=== PATIENT | male | born 1955 | race Caucasian/White ===

== ENCOUNTER 2020-08-26 14:12 | Emergency (ER) | payer MEDICAID ==
--- NOTE | 2020-08-26 15:23 | EDM.PDOC ---
ED HPI GENERAL MEDICAL PROBLEM - General Chief Complaint: Lower Extremity Injury/Pain Stated Complaint: BOTH FEET ARE SWOLLEN Time Seen by Provider: 08/26/20 15:00 Source of Information: Reports: Patient. Denies: Old Records History Limitations: Reports: No Limitations - History of Present Illness INITIAL COMMENTS - FREE TEXT/NARRATIVE: 65 yo male presents with recent onset of bilateral foot and ankle swelling. He has no other sx's. His provider recently increased his amlodipine from 5 mg daily to 5 mg bid. He has no pain or SOB. He called nurse direct and was told to go to the ER. Onset: Gradual Onset Date: 08/25/20 Duration: Day(s): (1), Constant Location: Reports: Lower Extremity, Left, Lower Extremity, Right Quality: Reports: Other (no pain) Severity: Mild Improves with: Reports: None Worsens with: Reports: Other (unsure) Context: Reports: Other (See HPI) Associated Symptoms: Reports: No Other Symptoms Treatments HALF SECTION IRONER: Reports: Other (see below) (none) Review of Systems - Review of Systems Review Of Systems: See Below Constitutional: Reports: No Symptoms Respiratory: Denies: Shortness of Breath, Pleuritic Chest Pain Musculoskeletal: Reports: No Symptoms Skin: Reports: No Symptoms Neurological: Reports: No Symptoms ED EXAM, GENERAL - Physical Exam Exam: See Below Exam Limited By: No Limitations General Appearance: Alert, WD/WN, No Apparent Distress Respiratory/Chest: No Respiratory Distress, Lungs Clear, Normal Breath Sounds, No Accessory Muscle Use. No: Crackles Cardiovascular: Regular Rate, Rhythm. No: No Edema Extremities: Pedal Edema (non pitting puffiness of both feet and ankles only). No: No Pedal Edema, Increased Warmth, Redness Neurological: Alert, Oriented, CN II-XII Intact, Normal Cognition, No Motor/Sensory Deficits Skin Exam: Warm, Dry, Intact, Normal Color, No Rash Course - Vital Signs Last Recorded V/S: Last Vital Signs Temp 37.9 C 08/26/20 15:03 Pulse 86 08/26/20 15:03 Resp 16 08/26/20 15:03 BP 115/75 08/26/20 15:03 Pulse Ox 97 08/26/20 15:03 Departure - Departure Time of Disposition: 15:20 Disposition: Home, Self-Care 01 Condition: Good Clinical Impression: Medication side effect - Discharge Information *PRESCRIPTION DRUG MONITORING PROGRAM REVIEWED*: Not Applicable *COPY OF PRESCRIPTION DRUG MONITORING REPORT IN PATIENT HELDER: Not Applicable Referrals: PCP,None [Primary Care Provider] - Additional Instructions: In the short run elevate your legs and avoid salt. Consider support stockings. In the long run, when you get home discuss backing off on your amlodipine to reduce your feet swelling. Sepsis Event Note (ED) - Focused Exam Vital Signs: Vital Signs Temp Pulse Resp BP Pulse Ox 08/26/20 15:03 37.9 C 86 16 115/75 97
== END 2020-08-26 15:31 | disposition home or self-care (01) ==
LOC: JP.ED 14:12
DX: M79.89 Other specified soft tissue disorders (principal); T46.1X5A Adverse effect of calcium-channel blockers, initial encounter
CPT/HCPCS: 99282; 99283